=== PATIENT | male | born 1970 | race Caucasian/White ===

== ENCOUNTER 2018-12-29 10:30 | Emergency (ER) | payer BC ==
[2018-12-29 10:41] VITALS: BP 128/80
[2018-12-29] MEDS ORDERED: DOXYcycline CAP(*) 100 MG PO ONE (10:47)
--- NOTE | 2018-12-29 10:47 | UC ---
Skin Complaint HPI - HPI Summary HPI Summary: 48 yo male presents with ?tick bite to left groin. He tells me that he was camping over the weekend and did not notice a tick. Last night he was in bed and scratched a spot to his left groin and felt something come off his skin. He looked at the area this morning and noticed a small red [place] with a central bite. He thinks this was a tick bite. - History of Current Complaint Chief Complaint: UCGeneralIllness Stated Complaint: TICK BITE Hx Obtained From: Patient Onset/Duration: Sudden Onset Onset Severity: Mild Current Severity: Mild Pain Intensity: 3 Pain Scale Used: 0-10 Numeric - Allergy/Home Medications Allergies/Adverse Reactions: Allergies Allergy/AdvReac Type Severity Reaction Status Date / Time No Known Allergies Allergy Verified 12/29/18 10:35 Home Medications: Home Medications NK [No Home Medications Reported] 12/29/18 [History Confirmed 12/29/18] PMH/Surg Hx/FS Hx/Imm Hx - Additional Past Medical History Additional PMH: None Other History Of: Negative For: Anticoagulant Therapy - Surgical History Surgical History: Yes Surgery Procedure, Year, and Place: Appendectomy 2007 [facility] [place] - Family History Known Family History: Positive: Non-Contributory - Social History Occupation: Employed Full-time Lives: With Family Alcohol Use: Weekly Substance Use Type: None Smoking Status (MU): Never Smoked Tobacco Review of Systems All Other Systems Reviewed And Are Negative: No Constitutional: Positive: Negative Skin: Positive: Other - Tick bite Respiratory: Positive: Negative Cardiovascular: Positive: Negative Neurovascular: Positive: Negative Neurological: Positive: Negative Psychological: Positive: Negative Physical Exam - Summary Physical Exam Summary: GENERAL: NAD. WDWN. No pain distress. SKIN: LEFT GROIN: there is a 5mm diameter of mild erythema and edema with central 1mm area of superficial skin loss. No streaking, bleeding, or drainage. NECK: Supple. Nontender. No lymphadenopathy. CHEST: No accessory muscle use. Breathing comfortably and in no distress. CV: Pulses intact. Cap refill <2seconds NEURO: Alert. PSYCH: Age appropriate behavior. Triage Information Reviewed: Yes Vital Signs: Initial Vital Signs Temp 99.1 F 12/29/18 10:35 Pulse 81 12/29/18 10:35 Resp 16 12/29/18 10:35 BP 128/80 09/17/19 10:35 Pulse Ox 99 12/29/18 10:35 Vital Signs Reviewed: Yes Course/Dx - Course Course Of Treatment: Questionable tick bite to left groin. Will treat with prophylactic doxycycline given that he is unsure if this was a tick or how long it was attached. - Diagnoses Provider Diagnosis: Tick bite Discharge ED - Sign-Out/Discharge Documenting (check all that apply): Patient Departure All imaging exams completed and their final reports reviewed: No Studies - Discharge Plan Condition: Stable Disposition: HOME Patient Education Materials: Lyme Disease (ED), Insect Bite or Sting (ED), Tick Bite (ED) Referrals: No Primary Care Phys,NOPCP [Primary Care Provider] - Additional Instructions: TICK BITE: You have been bitten by a tick. Once the tick is removed, these "bites" usually cause no problems. Tick fever, tick paralysis, [place] Spotted fever, and Lyme disease are uncommon -- but you should mention this tick bite to your doctor if you develop unusual symptoms in the next several weeks. If you develop any of the following, please see your physician promptly: (1) Fever, chills, or generalized malaise associated with a headache. (2) A red round area at the site of the bite (or elsewhere) (3) Joint pain, joint swelling or generalized weakness. (4) Redness, swelling, or drainage at the site of the bite. Ticks do not have a typical "head" attached to their body. There are mouth parts sticking out which they use to feed. If there are mouth parts left behind in the wound there is NO increased risk of Lyme infection or disease transmission. If mouth parts remain after tick removal, the best thing to do is apply warm soaks to the area 3-4 times per day to encourage the skin to expel the foreign material. WHEN A TICK IS NOT ENGORGED AND HAS BEEN ON LESS THAN 24 HOURS - THE RISK FOR LYME IS NEGLIGIBLE. YOU CAN REMOVE THE TICK AND OBSERVE THE AREA ON YOUR OWN. - Billing Disposition and Condition Condition: STABLE Disposition: Home
== END 2018-12-29 10:54 | disposition home or self-care (01) ==
LOC: UCEAST 10:30
DX: S30.861A Insect bite (nonvenomous) of abdominal wall, initial encounter (principal); W57.XXXA Bitten or stung by nonvenomous insect and other nonvenomous arthropods, initial encounter; Y92.9 Unspecified place or not applicable
CPT/HCPCS: 99202; A9270-GY; G0463

== ENCOUNTER 2018-12-31 13:24 | Emergency (ER) | payer BC ==
[2018-12-31 13:44] VITALS: BP 122/76
--- NOTE | 2018-12-31 14:10 | UC ---
Skin Complaint HPI - HPI Summary HPI Summary: 48-year-old male who was seen here approximately 2 days ago and treated prophylactically for Lyme with 1 dose of doxycycline here. There was a possibility he had a tick bite in his left groin area however he did not visualize a tick. Today he states the rash has spread, it's more painful with a shooting aching down his thigh and up into his buttock. - History of Current Complaint Chief Complaint: UCSkin Time Seen by Provider: 12/31/18 13:35 Stated Complaint: RECHECK RASH Hx Obtained From: Patient Onset/Duration: Gradual Onset Skin Exposure Onset/Duration: Days Ago - Patient noted the start of the rash on the 17th, 2 days ago. Timing: Constant Onset Severity: Mild Current Severity: Moderate Pain Intensity: 5 Location: Other - Left inner thigh. Character: Redness, Raised, Painful Aggravating Factor(s): Clothing, Touch Alleviating Factor(s): Nothing Associated Signs & Symptoms: Positive: Rash - Allergy/Home Medications Allergies/Adverse Reactions: Allergies Allergy/AdvReac Type Severity Reaction Status Date / Time No Known Allergies Allergy Verified 12/31/18 13:45 PMH/Surg Hx/FS Hx/Imm Hx Previously Healthy: Yes Other History Of: Negative For: Anticoagulant Therapy - Surgical History Surgical History: Yes Surgery Procedure, Year, and Place: Appendectomy 2007 [facility] – [place] - Family History Known Family History: Positive: Non-Contributory - Social History Alcohol Use: Occasionally Substance Use Type: None Smoking Status (MU): Never Smoked Tobacco Review of Systems All Other Systems Reviewed And Are Negative: Yes Skin: Positive: Rash - The rash started is only 2 points on his left groin area but has worsened and become more linear, with aching in the area. He states he felt the achiness before the rash erupted. Is Patient Immunocompromised?: No Physical Exam Triage Information Reviewed: Yes Appearance: Well-Appearing, No Pain Distress, Well-Nourished Vital Signs: Initial Vital Signs Temp 98.8 F 12/31/18 13:39 Pulse 92 12/31/18 13:39 Resp 18 12/31/18 13:39 BP 122/76 12/31/18 13:39 Pulse Ox 97 12/31/18 13:39 Vital Signs Reviewed: Yes Musculoskeletal: Positive: Strength Intact, ROM Intact Neurological: Positive: Alert, Muscle Tone Normal Psychological Exam: Normal Skin: Positive: Rashes - I visualized the rash with a revolving field assembler in the room. This is a herpetic looking rash and I believe this is herpes zoster. It's linear, vesicular irregularly-shaped. Course/Dx - Course Course Of Treatment: I'm going to start the patient on antiviral therapy and is to follow-up with his primary care provider if any worsening of symptoms. I did advise him to stay with some people that have not had chickenpox, especially women who are who have not had chickenpox. - Diagnoses Provider Diagnosis: Shingles Discharge ED - Sign-Out/Discharge Documenting (check all that apply): Patient Departure All imaging exams completed and their final reports reviewed: No Studies - Discharge Plan Condition: Good Disposition: HOME Prescriptions: ValACYclovir (*) [Valtrex 1 GM(*)] 1 gm PO TID 7 Days #21 tab Patient Education Materials: Shingles (ED) Referrals: No Primary Care Phys,NOPCP [Primary Care Provider] - [facility] [Outside] Additional Instructions: May take Tylenol every 4 hours and alternate with Aleve 2 tablets twice a day. Follow-up with your primary care provider if no improvement in 4 or 5 days. - Billing Disposition and Condition Condition: GOOD Disposition: Home
== END 2018-12-31 14:40 | disposition home or self-care (01) ==
LOC: UCEAST 13:24
DX: B02.9 Zoster without complications (principal)
CPT/HCPCS: 99212; G0463

== ENCOUNTER 2019-03-31 09:59 | Emergency (ER) | payer BC ==
[2019-03-31 12:45] VITALS: BP 117/85
--- NOTE | 2019-03-31 13:07 | UC ---
Respiratory Complaint HPI - HPI Summary HPI Summary: 8 DAYS OF SINUS PRESSURE, COUGH AND CONGESTION. FEELS IT HAS MOVED INTO HIS CHEST AND IS COMPLAINING OF A DEEP COUGH. NO DOCUMENTED FEVER BUT DOES COMPLAIN OF SOME INTERMITTENT CHILLS. NO NAUSEA/VOMITING. - History of Current Complaint Chief Complaint: UCGeneralIllness Stated Complaint: CHEST CONGESTION Time Seen by Provider: 03/31/19 12:12 Hx Obtained From: Patient Onset/Duration: Gradual Onset, Lasting Days, Still Present Timing: Constant Severity Initially: Moderate Severity Currently: Moderate Pain Intensity: 3 Pain Scale Used: 0-10 Numeric Character: Cough: Nonproductive Aggravating Factors: Nothing Alleviating Factors: Nothing Associated Signs And Symptoms: Positive: Chills, URI, Nasal Congestion, Hoarseness, Sinus Discomfort. Negative: Dyspnea, Wheezing - Allergies/Home Medications Allergies/Adverse Reactions: Allergies Allergy/AdvReac Type Severity Reaction Status Date / Time No Known Allergies Allergy Verified 03/31/19 10:16 PMH/Surg Hx/FS Hx/Imm Hx Previously Healthy: Yes Other History Of: Negative For: Anticoagulant Therapy - Surgical History Surgical History: Yes Surgery Procedure, Year, and Place: Appendectomy 2007 [facility] – [place] - Family History Known Family History: Positive: Non-Contributory - Social History Alcohol Use: Weekly Substance Use Type: None Smoking Status (MU): Never Smoked Tobacco Review of Systems All Other Systems Reviewed And Are Negative: Yes Constitutional: Positive: Chills, Fatigue ENT: Positive: Nasal Discharge, Sinus Congestion Respiratory: Positive: Cough Cardiovascular: Positive: Negative Gastrointestinal: Positive: Negative Physical Exam Triage Information Reviewed: Yes Appearance: Well-Appearing, No Pain Distress, Well-Nourished Vital Signs: Initial Vital Signs Temp 98.4 F 03/31/19 10:13 Pulse 82 03/31/19 10:13 Resp 18 03/31/19 10:13 BP 124/82 03/31/19 10:13 Pulse Ox 98 03/31/19 10:13 Vital Signs Reviewed: Yes Eyes: Positive: Conjunctiva Clear ENT: Positive: Hearing grossly normal, Pharynx normal, TMs normal Neck: Positive: Supple, Nontender, No Lymphadenopathy Respiratory Exam: Normal Cardiovascular Exam: Normal Abdomen Description: Positive: Soft Musculoskeletal: Positive: No Edema Neurological: Positive: Alert Psychological: Positive: Age Appropriate Behavior Skin: Negative: Rashes Respiratory Course/Dx - Course Course Of Treatment: LIKELY VIRAL ETIOLOGY OF SYMPTOMS. WILL TREAT WITH PREDNISONE AND COUGH MEDICINE. ADVISED PATIENT THAT IF HE IS NOT IMPROVING OVER THE NEXT FEW DAYS WITH THIS TREATMENT HE MAY BENEFIT FROM ANTIBIOTICS. HE WILL CALL ME HERE IN THE IF HE IS NOT IMPROVING EXPECTED. - Differential Dx/Diagnosis Provider Diagnosis: Acute bronchitis Discharge ED - Sign-Out/Discharge Documenting (check all that apply): Patient Departure All imaging exams completed and their final reports reviewed: No Studies - Discharge Plan Condition: Stable Disposition: HOME Prescriptions: Codeine Phosphate/Guaifenesin [Codeine-Guaifen 10-100 mg/5 ml] 5 - 10 ml PO Q6H PRN #150 ml MDD 40ML PRN Reason: Cough predniSONE TAB* [Deltasone TAB*] 50 mg PO DAILY #5 tab Patient Education Materials: Acute Bronchitis (ED) Referrals: [facility] [Outside] - If Needed Additional Instructions: YOUR SYMPTOMS ARE LIKELY VIRALLY MEDIATED AND SHOULD RESOLVE ON THEIR OWN WITH TIME. NO INDICATION FOR ANTIBIOTICS AT PRESENT. REST, HYDRATE, OTC MEDS NEEDED. WILL TREAT WITH PREDNISONE TO HELP WITH AIRWAY INFLAMMATION AND COUGH MEDICINE. SEEK FOLLOW-UP IF YOU ARE NOT IMPROVING OVER THE NEXT 1-2 WEEKS. YOU MAY CALL ME HERE IF YOU HAVE ANY QUESTIONS OR CONCERNS ABOUT THE PROGRESSION OF YOUR ILLNESS. I'LL BE HERE FRIDAY FROM 7 AM TO 2 PM, FRIDAY FROM 2:30 PM UNTIL 10 PM AND FRIDAY 2:30 PM UNTIL 10 PM. CALL THE NUMBER BELOW FOR ASSISTANCE IN ESTABLISHING WITH A PCP An additional resource available to assist in finding the appropriate physician for your health care needs is the [facility] ([facility]). You may contact them by calling [phone]. - Billing Disposition and Condition Condition: STABLE Disposition: Home
== END 2019-03-31 12:44 | disposition home or self-care (01) ==
LOC: UCEAST 09:59
DX: J20.9 Acute bronchitis, unspecified (principal)
CPT/HCPCS: 99212; G0463